=== PATIENT | male | born 1960 | race Caucasian/White ===

== ENCOUNTER 2024-02-24 10:13 | Emergency (ER) | payer OTHER, SELFPAY ==
[2024-02-24 10:15] VITALS: BP 140/75
--- NOTE | 2024-02-24 10:32 | ED.GENMED ---
History of Present Illness
<Laurence Juárez PA-C - Last Filed: 02/24/24 15:49>
General
Chief Complaint: Chest Pain
Source: patient
Time Seen by Provider: 02/24/24 10:22
History of Present Illness
History of Present Illness:
63yoM with a history of atrial fibrillation s/p ablation 3 months ago presenting with his for evaluation of chest pain. He reports right sided chest pressure which began yesterday morning while he was at work. 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
very stressful job. His chest pressure has been constant since it began. Nothing makes it better or worse. He also reports shortness of breath, lightheadedness, and sweating yesterday. He denies any syncope, paresthesia, nausea, vomiting. He smokes
1/2ppd. His father had an PA in his 60s. He follows with Dr. Pollard at [facility]. He currently taking Eliquis, atenolol, and flecainide.
Past History
<Laurence Juárez PA-C - Last Filed: 02/24/24 15:49>
Past History
ED Past Medical History: Arrthythmia
ED Past Surgical History: None
Social History
Tobacco: Smoker
Alcohol: None
Personal:
Living: with family
Employment: Employed
Review of Systems
<Layo Mcclain MD - Last Filed: 02/24/24 12:28>
Review of Systems
All Other Systems: Not applicable
Constitutional: Denies fever
Respiratory: Reports no symptoms
Phy Exam
<Laurence Juárez PA-C - Last Filed: 02/24/24 15:49>
General Physical Exam
General Presentation: well appearing and no apparent distress
General age: appears stated age
General Skin: warm and dry
General Habitus: normal
General Mental: alert
Cardiovascular Exam
Cardiovascular Exam: regular rate/rhythm, no edema, no murmur and normal peripheral pulses (2+ radial and DP pulses bilaterally)
Pulmonary Exam
Pulmonary Exam: lungs clear, no respiratory distress, no crackles and no wheezing
[place] Coma Scale
Eye Opening: Spontaneous
Verbal Response: Oriented
Motor Response: Obeys Commands
GCS Total Score: 15
Musculoskeletal Exam
Musculoskeletal Exam: no edema
Psychiatric Exam
Psychiatric Exam: normal mood/affect
<Layo Mcclain MD - Last Filed: 02/24/24 12:28>
[place] Coma Scale
GCS Total Score: 15
Scores
<Laurence Juárez PA-C - Last Filed: 02/24/24 15:49>
Heart Score for Chest Pain Patients
STEMI patient?: No
History: Moderately Suspicious
ECG: Normal
Age: >45 - <65 years
Risk Factors: 1 or 2 Risk Factors
Troponin: </= Normal Limit
Heart Score for Chest Pain Patients: 3
Heart Score Risk: 2.5% MACE over next 6 weeks
Course
<Laurence Juárez PA-C - Last Filed: 02/24/24 15:49>
Orders/Labs/Results
Orders:
Orders
02/24/24 10:16
ECG [Electrocardiogram (*1)] Urgent
Reason for Study: Chest Pain
EKG- Treatment ONCE
02/24/24 10:37
Cardiac Monitoring- Treatment ONCE
CR Chest - 2 Views Urgent
Comment:
Reason For Exam: CP
02/24/24 10:46
Complete Blood Count/With Diff Urgent
Comprehensive Metabolic Panel Urgent
Troponin I Urgent
02/24/24 12:21
EKG- Treatment ONCE
02/24/24 13:40
Troponin I Urgent
02/24/24 13:45
Electrocardiogram (*1) Urgent
Reason for Study: Chest Pain
Abnormal Lab Results
02/24/24
10:46
RBC 4.27 L 10^6/uL
(4.70-6.10)
MCV 98.4 H fL
(80.0-94.0)
MCH 34.9 H pg
(27.0-31.0)
Absolute Monos (auto) 0.7 H 10^3/uL
(0.1-0.6)
Monocytes % 9.8 H %
(1.7-9.3)
Total Bilirubin 1.7 H mg/dl
(0.2-1.3)
02/24/24 10:46
02/24/24 10:46
Vital Signs
Initial and Last Documented VS:
Initial Vital Signs
Temp Pulse Resp BP Pulse Ox
98.1 F 79 18 140/75 97
02/24/24 10:15 02/24/24 10:15 02/24/24 10:15 02/24/24 10:15 02/24/24 10:15
Last Documented Vital Signs
Temp Pulse Resp BP Pulse Ox
98.1 F 78 18 141/83 97
02/24/24 10:15 02/24/24 12:00 02/24/24 12:00 02/24/24 12:00 02/24/24 12:00
<Layo Mcclain MD - Last Filed: 02/24/24 12:28>
Orders/Labs/Results
Orders:
Orders
02/24/24 10:16
ECG [Electrocardiogram (*1)] Urgent
Reason for Study: Chest Pain
EKG- Treatment ONCE
02/24/24 10:37
Cardiac Monitoring- Treatment ONCE
CR Chest - 2 Views Urgent
Comment:
Reason For Exam: CP
02/24/24 10:46
Complete Blood Count/With Diff Urgent
Comprehensive Metabolic Panel Urgent
Troponin I Urgent
02/24/24 12:21
EKG- Treatment ONCE
02/24/24 13:40
Troponin I Urgent
02/24/24 13:45
Electrocardiogram (*1) Urgent
Reason for Study: Chest Pain
Abnormal Lab Results
02/24/24
10:46
RBC 4.27 L 10^6/uL
(4.70-6.10)
MCV 98.4 H fL
(80.0-94.0)
MCH 34.9 H pg
(27.0-31.0)
Absolute Monos (auto) 0.7 H 10^3/uL
(0.1-0.6)
Monocytes % 9.8 H %
(1.7-9.3)
Total Bilirubin 1.7 H mg/dl
(0.2-1.3)
02/24/24 10:46
02/24/24 10:46
Vital Signs
Initial and Last Documented VS:
Initial Vital Signs
Temp Pulse Resp BP Pulse Ox
98.1 F 79 18 140/75 97
02/24/24 10:15 02/24/24 10:15 02/24/24 10:15 02/24/24 10:15 02/24/24 10:15
Last Documented Vital Signs
Temp Pulse Resp BP Pulse Ox
98.1 F 78 18 141/83 97
02/24/24 10:15 02/24/24 12:00 02/24/24 12:00 02/24/24 12:00 02/24/24 12:00
[place];Laurence Juárez PA-C - Last Filed: 02/24/24 15:49>
MDM/Problems Addressed
Differential Diagnosis Includes:
63yoM presenting for R sided chest pressure. Constant since yesterday. Also having SOB. Hx of afib s/p ablation. He is afebrile and hemodynamically stable. He is well appearing in no distress. Exam is reassuring. Differential diagnosis includes but
is not limited to: ACS, arrhythmia, pneumonia, pneumothorax, doubt aortic dissection. Less likely PE as he is anticoagulated without PE risk factors and vitals are normal.
Initial ED plan: Check cardiac labs, EKG, and CXR.
<Laurence Juárez PA-C - Last Filed: 02/24/24 15:49>
*EKG
Interpreted by ED Provider?: Yes
EKG Intrepretation Date: 02/24/24
Heart Rate: 88
Rate: normal
Rhythm: sinus
[place]: normal axis
Interval: normal interval
QRS Pattern: normal QRS
Ischemia: no ischemia
*Critical Care Note
Total Time (30-74mins, 75-104mins- exclusive of procedures): Not Applicable
<Laurence Juárez PA-C - Last Filed: 02/24/24 15:49>
Update Note
Update Note:
Labs overall unremarkable. EKG shows NSR without ischemic changes and troponin is normal. CXR is clear. Repeat troponin/EKG performed at 3 hours unchanged. He is asymptomatic on reassessment. HEART score is 3. No indication for admission. Stressed
the need for close outpatient f/u with his director law enforcement. Strict ED return precautions discussed. He expressed understanding and is agreeable to plan. Patient discharged in stable condition.
1237: Spoke with Leslee nurse at Dr. Pollard's office, via phone. No recent cardiac cath or cardiac testing. Last echo in 2014 and last stress test in 2009.
ED Attending Note
<Laurence Juárez PA-C - Last Filed: 02/24/24 15:49>
-
Portions of this chart may have been created with voice recognition software.� Occasional wrong word or��sound alike� substitutions may have occurred due to the inherent limitations of voice recognition software.
<Layo Mcclain MD - Last Filed: 02/24/24 12:28>
ED Attending Note
Patient seen and examined by attending physician: Yes
I performed the substantive portion of visit, reviewed & personally made and approve the management plan that is documented in note by myself or MARK.: Yes
ED Attending Note:
63-year-old male presents with chest pain. Under significant stress related to work issues. Started yesterday. Worse stress. Today's episode started about 8 AM and has been continuous until now when it has resolved. Patient points to localize
to the right side. Somewhat worse with breathing. No shearing pain back pain no arm or jaw pain. No exertional component. No history of coronary artery disease. Does have a history of atrial fibrillation. Patient had an ablation done September
2023. Patient is on Xarelto.
On exam patient is nontoxic in no distress. Warm and dry. Perfusing well. Lungs clear and equal. Heart regular rate and rhythm no murmur. Warm and dry. No extremity swelling. No cord.
Initial troponin negative. Initial EKG stable.
Impression is atypical nonexertional right-sided chest pain. Minimally pleuritic although patient is faithful and on Xarelto. He has no risk factors for DVT. He is not hypoxic not tachycardic or tachypneic. No indication for further pulmonary
emboli workup. From a cardiac standpoint patient is describing atypical symptoms. It has been prolonged this morning for about 4 hours. Initial EKG and troponin negative. They will be repeated in 3 hours. We will try to contact his primary
director law enforcement to confirm a possible cardiac cath that was done with his ablation. If all remains stable can be discharged to follow-up closely
Discharge Plan
Departure
Patient Disposition: Home (Routine Discharge)
Date of Disposition: 02/24/24
Time of Disposition: 14:47
Patient with high blood pressure during this ER visit?: Yes
Discharge Problem:
Chest pain
Instructions: Chest Pain
Prescriptions:
No Action
atenolol 50 mg Tablet
50 mg PO DAILY
Eliquis 5 mg Tablet
5 mg PO BID
flecainide 100 mg Tablet
100 mg PO Q12H
Referrals:
UNKNOWN - PT DOES,NOT KNOW [Family Provider] -
Activity Restrictions/Additional Instructions:
Please call today to schedule a follow-up with your director law enforcement. Return to the ER immediately with any new or worsening symptoms.
Interventions
Interventions:
*Risk Screen - Suicide Last Done: 02/24/24 10:17
*General Assessment Last Done: 02/24/24 10:17
*Neglect/Abuse Screening Last Done: 02/24/24 10:17
ED- Fall Risk Assessment Last Done: 02/24/24 10:38
*ED COVID-19 Vaccine History Last Done: 02/24/24 10:38
*Nursing Disposition Last Done: 02/24/24 14:55
ED- Cardiac Assessment Last Done: 02/24/24 10:38
Discharge Date and Time
Discharge Date/Time: 02/24/24 14:56
Print Language: BULGARIAN
[2024-02-24 10:38] VITALS: BMI 25.5
[2024-02-24 10:56] LABS: % Basophils 0.4 % (0-2); % Eosinophils 4.1 % (0-6); % Immature Granulocytes 0.5 % (0-0.5); % Monocytes 9.8 % (1.7-9.3); % Neutrophils 64.2 % (42.2-75.2); Absolute Eosinophils 0.3 10^3/uL (0-0.7); Absolute Lymphocytes 1.6 10^3/uL (1.2-3.4); Absolute Monocytes 0.7 10^3/uL (0.1-0.6); Absolute Neutrophils 4.9 10^3/uL (1.4-6.5); Hemoglobin 14.9 g/dL (13.0-18.0); Mean Corp Hgb Conc. 35.5 g/dL (33.0-37.0); Mean Corpuscular Hgb 34.9 pg (27.0-31.0); Mean Corpuscular Volume 98.4 fL (80.0-94.0); Mean Platelet Volume 9.5 fL (7.4-10.4); Nucleated Red Blood Cells % 0 % (-); Platelet Count 225 10^3/uL (130-400); Red Blood Cell Count 4.27 10^6/uL (4.70-6.10); Red Cell Dist. Width 13.5 % (11.5-14.5); White Blood Cell Count 7.6 10^3/uL (4.8-10.8)
[2024-02-24 11:14] LABS: ALT (SGPT) 45 U/L (0-50); AST (SGOT) 30 U/L (17-59); Albumin 4.7 g/dl (3.5-5.0); Alkaline Phosphatase 46 U/L (38-126); Blood Urea Nitrogen 13 mg/dl (9-20); Calcium 9.7 mg/dl (8.4-10.2); Carbon Dioxide 22 mmol/L (22-30); Chloride 104 mmol/L (98-107); Estimated Creatinine Clearance 116 ml/min; Glucose 91 mg/dl (70-99); Potassium 4.1 mmol/L (3.5-5.1); Sodium 137 mmol/L (135-145); Total Bilirubin 1.7 mg/dl (0.2-1.3); Total Protein 7.2 g/dl (6.3-8.2); eGFR > 60.00
[2024-02-24 11:16] LABS: Troponin I < 0.012 ng/ml
[2024-02-24 12:00] VITALS: BP 141/83
[2024-02-24 14:20] LABS: Troponin I < 0.012 ng/ml
== END 2024-02-24 14:56 | disposition home or self-care (01) ==
LOC: EMR 10:13
PROVIDERS: Physician Assistant; EMERGENCY PHYSICIAN Emergency Medicine
DX: R07.89 Other chest pain (principal); R06.02 Shortness of breath; R42 Dizziness and giddiness; R61 Generalized hyperhidrosis; R03.0 Elevated blood-pressure reading, without diagnosis of hypertension; I48.91 Unspecified atrial fibrillation; F17.210 Nicotine dependence, cigarettes, uncomplicated; Z79.01 Long term (current) use of anticoagulants; Z79.899 Other long term (current) drug therapy
CPT/HCPCS: 99284; 71046; 80053; 84484; 85025; 93005